=== PATIENT | female | born 1935 | race Caucasian/White ===

== ENCOUNTER 2016-09-18 00:58 | Observation (INO) | payer OTHER ==
[~2016-09-18] VITALS: Ht 177.8 cm; Wt 63.5 kg
--- NOTE | ~2016-09-18 | D ---
[facility] [place] [address] [place] [address] DISCHARGE SUMMARY Name: SARATH LOVETT Room #: 410-P [facility] Shirlene Cheung#: [id number] Admission: 09/18/16 Attend Phys: Ryan Echeverria MD Discharge: Date of : 35 Report #: [id number] THIS REPORT FOR: //name// CC: Prem Echeverria DATE OF SERVICE: 09/20/2016 The patient was admitted to the hospital on September 18, discharged from the hospital on September 20. HISTORY OF PRESENT ILLNESS: The patient is an 81-year-old female who came to the hospital with left leg pain. Please refer to the admission H and P for details. In brief, the patient was found to have left pubic ramus fracture, as well as CT scan of the pelvis reveals sacral fracture. HOSPITALIZATION COURSE: The patient was hospitalized. Orthopedic surgeon was consulted. The patient was seen and evaluated. As noted, CT showed pelvic fracture at the sacral region, as well as left pubic ramus fracture. Conservative treatment was recommended. Etiology was not clear, as the patient did not have recent falls. The patient was seen and evaluated by physical therapist. Outpatient therapy was recommended. I had discussion with the patient this morning. She would like to go back to assisted living facility with outpatient physical therapy. The patient states that she does not want to take any strong medication, so she will stay on acetaminophen. The patient will follow up with primary care physician and orthopedic surgeon in the next few weeks. DISCHARGE MEDICATIONS: Please refer to the medication reconciliation list. DISCHARGE DIAGNOSES: Spontaneous left pubic rami and sacral fracture, clinically much better. SECONDARY DIAGNOSES: Atrial fibrillation, hypertension. DISPOSITION: The patient is discharged to assisted living facility on home health, an outpatient physical therapy. [facility] [address] [facility] [address] DISCHARGE SUMMARY Name: BONYSARATH Kraig Room #: 410-P [facility] Shirlene Cheung#: [id number] Admission: 09/18/16 Attend Phys: Ryan Echeverria MD Discharge: Date of : 35 Report #: [id number] I spent about 30 minutes to coordinate the patient's discharge from the hospital. <ELECTRONICALLY SIGNED> By: Ryan Echeverria MD 09/20/16 1534 [id number] Ryan Echeverria MD /nt
--- NOTE | ~2016-09-18 | H ---
[facility] [address] [address] HISTORY AND PHYSICAL Name: SARATH LOVETT Room #: 410-P [facility] M.R.#: [id number] Admission: 09/18/16 Attend Phys: Edward Morris DO Discharge: Date of : 35 Report #: [id number] THIS REPORT FOR: //name// CC: Prem Morris PULMONARY CONSULTATION ATTENDING PHYSICIAN: Edward Morris DO PRIMARY CARE PHYSICIAN: Prem Doss M.D. CHIEF COMPLAINT: Left leg pain. HISTORY OF PRESENT ILLNESS: The patient is an 81-year-old female, who was brought into the ER from her assisted living facility for left leg pain. She says her pain goes up to her knee and thigh area. The pain is worse with ambulating to the point, she is barely able to use her walker to ambulate. She denies any fall or injury. She actually is a very poor historian and cannot really say when it exactly started, but she think that has been about 6-8 months ago. She denies any history of blood clots. She is not really sure why she is here. She was brought in by EMS to be evaluated. She is currently resting comfortably. PAST MEDICAL HISTORY: Atrial fibrillation, hypertension, bleeding ulcers, pancreatitis. PAST SURGICAL HISTORY: Cholecystectomy, hysterectomy, Friedman claribel surgery and then claribel removal in the back, sinus surgery x 5, bilateral mastectomy for fibrocystic changes and bilateral prosthetic implants, appendectomy, tonsillectomy, right foot surgery, right elbow surgery. ALLERGIES: DICYCLOMINE, IRON, BACTRIM, TERBINAFINE, AND PERCOCET, all unknown reactions. HOME MEDICATIONS: Alprazolam 0.5 mg p.o. at bedtime, calcium with vitamin D one tab t.i.d., aspirin 81 mg daily, MiraLax 17 g b.i.d., Colace 100 mg b.i.d., Lasix 40 mg daily, Tikosyn 250 mcg b.i.d., Cymbalta 60 mg daily, loratadine 10 mg daily, metoprolol XL 25 mg p.o. daily, Ocuvite 1 capsule daily, potassium 20 mEq b.i.d., Pradaxa 150 mg b.i.d., ranitidine 150 mg b.i.d., Tylenol p.r.n., ibuprofen 600 mg q. 6-8 hours p.r.n., loperamide p.r.n. and Pepto-Bismol p.r.n. SOCIAL HISTORY: The patient lives ____ assisted living. She is a and does have one living son. She denies any tobacco or alcohol use. She ambulates with a walker. FAMILY HISTORY: Noncontributory due to advanced age. [place] [id number] HISTORY AND PHYSICAL Name: SARATH LOVETT Room #: 410-P [facility] Shirlene YuRCatia#: [id number] Admission: 09/18/16 Attend Phys: Edward Morris DO Discharge: Date of : 35 Report #: [id number] REVIEW OF SYSTEMS: Difficult to evaluate due to patient is a very poor historian and possible dementia. PHYSICAL EXAMINATION: GENERAL: The patient is an alert female in no acute distress. VITAL SIGNS: Temperature is 36.4, heart rate 70, respirations 16, blood pressure is 146/80 and oxygen 97% on room air. HEENT: PERRLA. Sclerae is nonicteric. Oral mucosa is pink and moist. NECK: Supple, no JVD noted. CARDIOVASCULAR: Normal S1, S2. No murmurs, rubs or gallops. RESPIRATORY: Breath sounds are clear bilaterally. CARDIAC: Normal S1, S2. No murmurs, rubs or gallops. RESPIRATORY: Breath sounds are clear throughout. No wheezing or rhonchi. Breathing is nonlabored. ABDOMEN: Round, soft, and nontender with positive bowel sounds. VASCULAR: No edema is noted. She does have very limited range of motion of the left hip and knee due to pain. She does have point tenderness to the medial aspect of her left side just above the knee. There is no redness or palpable cord in this area or warmth. Her feet are somewhat cool and pedal pulses are 1+ bilaterally. NEUROLOGIC: The patient is alert and oriented x 3, although she is a poor historian. She is able to follow commands. She has difficulty moving her left leg described above, but sensation is intact in all 4 extremities. We did not see her ambulate. No facial asymmetry. SKIN: Intact. No rashes or lesions. LABORATORY DATA AND DIAGNOSTIC: WBC is 9.0, hemoglobin 11.1, platelets 261. INR 1.2. D-dimer 0.64. Sodium 137, potassium 3.7. CRP is 2.5, CK is 61. Glucose 96, creatinine 0.8. X-rays of the left hip and pelvic showed fracture of the superior pubic ramus. Left knee x-ray showed some degenerative joint disease and osteoporosis, but no fracture or dislocation. Left tibia fibula showed osteoporosis, no fracture or dislocation, and left foot showed degenerative changes with osteopenia and osteoporosis but no fracture or dislocation. ASSESSMENT AND PLAN: 1. Pelvic fracture with left leg pain. It is unclear if the pelvic fracture is chronic or the cause of all of her left leg pain. Her point tenderness in her leg is more around her knee area. We will further evaluate with CTs of her pelvis and lumbar spine, as this may be some radiculopathy pain. We will continue with pain control, and has PT evaluate. We will also consult Orthopedic surgery for any other recommendations. For her left leg pain, we do need to rule out deep vein thrombosis, although her D-dimer is only mildly elevated, but we will check an ultrasound. 2. Paroxysmal atrial fibrillation. She is currently in a sinus rhythm. [address] [address] HISTORY AND PHYSICAL Name: SARATH LOVETT Kraig Room #: 410-P [facility] M.R.#: [id number] Admission: 09/18/16 Attend Phys: Edward Morris DO Discharge: Date of : 35 Report #: [id number] Continue home medications and monitor on telemetry. 3. I did speak with pharmacy and they were concerned of that. She is on Tikosyn as well as Cardizem. According to the pharmacy, Cardizem can increase the therapeutic effect of Tikosyn and should be monitored very closely. She is on Pradaxa for anticoagulation, which we will continue. 4. Hypertension. Blood pressure is stable. Continue home meds. 5. Deep venous thrombosis prophylaxis, place SCDs. We will continue to follow the patient closely throughout the hospitalization and make changes based on clinical status. <ELECTRONICALLY SIGNED> By: MAIN Bagley 09/19/16 0743 [id number] MAIN Bagley /nt
[~2016-09-18 00:58] MED LIST: ACETAMINOPHEN325 M1; ALPRAZOLAM 0.50.5 MG PO; ASA81BEC PO; CALCIUM 500 +1 EAC5 PO; CALCIUM 600 +1 EAC1 PO; CALCIUM OYSTER500 MG; COUMADIN 5 MG TA5 M1 PO; DILTIAZEM 24HR120 M2 PO; FLECAINIDE ACE100 MG PO; FLONASE 0.05%50 MCG NASAL; FLUZONE 2045 MCG/011; I-CAPS AREDS S1 EACH PO; LISINOPRIL2.5 MG; LO-DOSE ASPIRIN81 M1; MIRALAX17 GM PO; PATADAY2.5 ML OP; PERCOCET PO; PHENERGAN 25 MG25 M1 PO; PNEUMOVAX25 MCG/0.5; PRILOSEC 20 MG20 MG; PRILOSEC OTC20 MG PO; REMERON15 MG PO; VICODIN; VIT D3 PO; ZOFRAN 4 MG ORAL4 MG PO; ZOFRAN4 MG
[2016-09-18 00:59] VITALS: BP 146/80
[2016-09-18] MEDS ORDERED: COLACE100 MG PO (01:05)
[2016-09-18] MEDS ORDERED: LASIX 40 MG TAB40 M2 PO (01:05)
[2016-09-18] MEDS ORDERED: DOFETILIDE250 MCG PO (01:08)
[2016-09-18] MEDS ORDERED: CYMBALTA60 MG PO (01:08)
[2016-09-18] MEDS ORDERED: TOPROL XL25 MG PO (01:09)
[2016-09-18] MEDS ORDERED: CLARITIN10 MG PO (01:09)
[2016-09-18] MEDS ORDERED: OCUVITE LUTEIN1 EAC2 PO (01:10)
[2016-09-18] MEDS ORDERED: POTASSIUM20 PO (01:11)
[2016-09-18] MEDS ORDERED: PRADAXA150 MG PO (01:11)
[2016-09-18] MEDS ORDERED: RANITIDINE 150150 M1 PO (01:11)
[2016-09-18] MEDS ORDERED: TYLENOL325 MG PO (01:12)
[2016-09-18] MEDS ORDERED: IBUPROFEN 600600 M1 PO (01:13)
[2016-09-18] MEDS ORDERED: LOPERAMIDE 2 MG2 M1 PO (01:13)
[2016-09-18] MEDS ORDERED: PINK BISMUTH262 MG PO (01:14)
[2016-09-18 01:46] LABS: ABSOLUTE NEUTROPHILS 5.6 thou/uL (1.4-8.2); BASOPHILS 0.7 % (0.0-2.0); EOSINOPHILS 2.9 % (0.0-3.0); HEMATOCRIT 33.7 % (37.0-47.0); HEMOGLOBIN 11.1 gm/dL (12.0-15.0); LYMPHOCYTES 22.9 % (24.0-44.0); MCH 29.9 pg (26.0-34.0); MCV 90.7 fL (80.0-100.0); MONOCYTES 10.9 % (1.0-8.0); PLATELET COUNT 261 thou/uL (150-400); POLYS 62.6 % (36.0-66.0); RBC 3.72 mil/uL (4.20-5.00); RDW 16.5 % (10.5-14.5)
[2016-09-18 01:53] LABS: CALCIUM 9.3 mg/dL (8.5-10.1); CREATININE 0.8 mg/dL (0.6-1.0); MANUAL DIFF NO; POTASSIUM 3.7 mmol/L (3.5-5.1)
[2016-09-18 02:14] LABS: APTT 39.2 Seconds (24.5-32.8); INR 1.2; PROTIME 11.6 Seconds (9.3-11.4)
[2016-09-18 03:57] VITALS: BP 130/67
[2016-09-18 04:00] VITALS: BP 130/72
[2016-09-18 17:17] VITALS: BP 135/77
[2016-09-18 20:00] VITALS: BP 141/72
[2016-09-19 05:25] VITALS: BP 140/75
[2016-09-19 08:00] VITALS: BP 149/82
[2016-09-19 15:49] VITALS: BP 139/69
[2016-09-19 19:37] VITALS: BP 104/56
[2016-09-20 03:36] VITALS: BP 129/63
[2016-09-20 07:39] VITALS: BP 122/66
[2016-09-20] MEDS ORDERED: LOPERAMIDE 2 MG2 M1 PO (11:52)
[2016-09-20 14:25] VITALS: BP 122/66
[2016-09-20 15:46] VITALS: BP 102/57
== END 2016-09-20 19:20 | disposition home health service (06) ==
LOC: ER 00:58 → 4N 03:22 → EROBS 03:22 → 4N 04:04
PROVIDERS: Emergency Medicine
DX: S32.512A Fracture of superior rim of left pubis, initial encounter for closed fracture (principal); M25.562 Pain in left knee; R10.2 Pelvic and perineal pain; I48.0 Paroxysmal atrial fibrillation; I10 Essential (primary) hypertension; K27.4 Chronic or unspecified peptic ulcer, site unspecified, with hemorrhage; K85.90 Acute pancreatitis without necrosis or infection, unspecified; X58.XXXA Exposure to other specified factors, initial encounter; Y93.89 Activity, other specified; Y92.89 Other specified places as the place of occurrence of the external cause; Y99.8 Other external cause status